=== PATIENT | female | born 1965 | race Hispanic/Latino ===

== ENCOUNTER 2018-01-15 17:39 | Emergency (ER) ==
[2018-01-15] MEDS ORDERED: Dexamethasone 4 mg/ml Vial ONE (18:32)
--- NOTE | 2018-01-15 18:45 | RAD ---
TWO SEPARATE AP VIEWS OF THE CHEST 01/15/18 INDICATION: Cough. COMPARISON: Prior exam dated 04/29/16. FINDINGS/IMPRESSION: No consolidation is evident. Cardiomediastinal silhouette is within normal limits. No acute osseous a bnormality is evident. The exam is compared to a prior dated 04/29/16. POS: [facility]
== END 2018-01-15 18:40 | disposition home or self-care (01) ==
LOC: ERS 17:39
DX: J40 Bronchitis, not specified as acute or chronic (principal); I10 Essential (primary) hypertension; F41.9 Anxiety disorder, unspecified; F31.9 Bipolar disorder, unspecified
CPT/HCPCS: 71045; 93005; 94640; J1100; J7620